=== PATIENT | female | born 1995 | race Caucasian/White ===

== ENCOUNTER 2020-12-23 16:35 | Inpatient (IN) ==
[2020-12-23] MEDS ORDERED: 0.9 % Sodium Chloride 1,000 ML IVC ONE ×2 (17:17→17:18)
[2020-12-23 17:40] LABS: Hematocrit 19.1 % (35.3-44.9); Hemoglobin 6.6 g/dL (11.5-15.4); Immature Platelets 2.2 % (1.1-6.1); Lymphocytes # 1.8 K/mcL (0.6-4.6); Lymphocytes % 92.3 %; Mean Corpuscular HGB Conc 34.6 g/dL (31.6-35.5); Mean Corpuscular Hemoglobin 32.7 pg (28.0-33.3); Mean Corpuscular Volume 94.6 fL (83.0-100.0); Monocytes # 0.1 K/mcL (0.0-1.3); Monocytes % 4.6 %; Neutrophils # 0.1 K/mcL (1.6-8.9); Red Blood Count 2.02 M/mcL (3.82-4.97); Segmented Neutrophils % 3.1 %; White Blood Count 1.9 K/mcL (4.3-11.1)
[2020-12-23 17:44] LABS: Platelet Count < 2 K/mcL (140-400)
[2020-12-23 18:00] LABS: Platelet Estimate Marked Decrease (Normal)
[2020-12-23 18:03] LABS: Alanine Aminotransferase 10 Units/L (7-52); Albumin 3.9 g/dL (3.5-5.7); Albumin/Globulin Ratio 1.1 (1.1-2.2); Alkaline Phosphatase 43 Units/L (34-104); Aspartate Amino Transferase 9 Units/L (13-39); BUN/Creatinine Ratio 21 (6-26); Bilirubin,Total 0.8 mg/dL (0.3-1.0); Blood Urea Nitrogen 11 mg/dL (6-20); Carbon Dioxide 22 mEq/L (23-29); Chloride 100 mEq/L (98-107); Globulin 3.7 g/dL (2.4-3.5); Glucose 112 mg/dL (70-105); Osmolality,Calculated 272 (280-300); Potassium 3.7 mEq/L (3.5-5.1); Sodium 131 mEq/L (136-145); Total Protein 7.6 g/dL (6.4-8.9); eGFR For African Americans > 60 (> 60); eGFR For Non-African Americans > 60 (> 60)
[2020-12-23] MEDS ORDERED: Cefepime HCl 2,000 MG in 0.9 % Sodium Chloride Mini Bag 100 ML IVPB ONE (19:00)
[2020-12-23 19:45] LABS: Bilirubin,Urine Negative (Negative); Blood,Urine Moderate (Negative); Clarity,Urine Clear (Clear); Color,Urine Colorless (Yellow); Glucose,Urine (UA) Normal (Normal); Ketones,Urine 20 mg/dL (Negative); Leukocyte Esterase,Urine Negative (Negative); Nitrite,Urine Negative (Negative); PH,Urine 6.5 pH Units (5.0-8.0); Protein,Urine Trace mg/dL (Neg-Trace); Specific Gravity,Urine 1.007 (1.010-1.025); Squamous Epithelial Cell,Urine Few per hpf (None-Few); Urobilinogen,Urine Normal (Normal); WBC,Urine 0-3 per hpf (0-3)
[2020-12-23] MEDS ORDERED: Ondansetron 4 MG/2 ML VIAL IVP PRN (20:24)
[2020-12-23] MEDS ORDERED: *HR* Promethazine 25 MG/ML VIAL IM PRN (20:24)
[2020-12-23] MEDS ORDERED: *HR* HYDROcodone/Acet 5/325 mg TABLET PO PRN (20:24)
[2020-12-23] MEDS ORDERED: Naloxone 0.4 MG/ML INJ IVP PRN (20:24)
[2020-12-23] MEDS ORDERED: Melatonin 3 MG TABLET PO PRN (20:27)
[2020-12-23] MEDS ORDERED: 0.9 % Sodium Chloride 250 ML IVC SCH ×2 (20:30→20:45)
[2020-12-23 20:40] LABS: Adenovirus Not Detected (Not Detect); Bordetella Pertussis Not Detected (Not Detect); Chlamydophila pneumoniae Not Detected (Not Detect); Coronavirus 229E Not Detected (Not Detect); Coronavirus HKU1 Not Detected (Not Detect); Coronavirus NL63 Not Detected (Not Detect); Coronavirus OC43 Not Detected (Not Detect); Human Metapneumovirus Not Detected (Not Detect); Human Rhinovirus/Enterovirus Not Detected (Not Detect); Influenza A Subtype 2009 H1 Not Detected (Not Detect); Influenza B Not Detected (Not Detect); Mycoplasma pneumoniae Not Detected (Not Detect); Parainfluenza Virus 1 Not Detected (Not Detect); Parainfluenza Virus 2 Not Detected (Not Detect); Parainfluenza Virus 3 Not Detected (Not Detect); Parainfluenza Virus 4 Not Detected (Not Detect); Respiratory Syncytial Virus Not Detected (Not Detect); SARS-CoV-2 Not Detected (Not Detect)
[2020-12-24] MEDS ORDERED: Ringers Solution, Lactated 1,000 ML IVC ONE (02:06)
[2020-12-24] MEDS: Acetaminophen 325 MG TABLET PO PRN (03:30)
[2020-12-24] MEDS: Cefepime HCl 2,000 MG in Water for inj. (sterile) 20 ML IVP SCH ×3 (05:29→20:55)
[2020-12-24 06:12] LABS: BUN/Creatinine Ratio 17 (6-26); Blood Urea Nitrogen 8 mg/dL (6-20); Calcium 8.2 mg/dL (8.6-10.3); Carbon Dioxide 21 mEq/L (23-29); Chloride 107 mEq/L (98-107); Glucose 107 mg/dL (70-105); Osmolality,Calculated 281 (280-300); Potassium 3.6 mEq/L (3.5-5.1); Sodium 136 mEq/L (136-145); eGFR For African Americans > 60 (> 60); eGFR For Non-African Americans > 60 (> 60)
[2020-12-24 06:51] LABS: Red Cell Distribution Width 17.8 % (11.5-14.5)
[2020-12-24 06:53] LABS: Hematocrit 19.8 % (35.3-44.9); Hemoglobin 6.7 g/dL (11.5-15.4); Immature Platelets 0.3 % (1.1-6.1); Lymphocytes # 1.4 K/mcL (0.6-4.6); Mean Corpuscular HGB Conc 33.8 g/dL (31.6-35.5); Mean Corpuscular Volume 88.8 fL (83.0-100.0); Mean Platelet Volume 9.5 fL (9.4-12.4); Red Blood Count 2.23 M/mcL (3.82-4.97); White Blood Count 1.5 K/mcL (4.3-11.1)
[2020-12-24 07:45] LABS: Platelet Count 20 K/mcL (140-400)
[2020-12-24 07:47] LABS: Neutrophils # 0.1 K/mcL (1.6-8.9)
[2020-12-24 07:48] LABS: Platelet Estimate Marked Decrease (Normal)
[2020-12-24] MEDS: Fluconazole 100 MG TABLET PO SCH (09:21)
[2020-12-24] MEDS ORDERED: 0.9 % Sodium Chloride 250 ML IVC SCH (13:45)
[2020-12-24] MEDS ORDERED: 0.9 % Sodium Chloride 250 ML ONE (15:50)
[2020-12-24 19:45] LABS: Adenovirus F 40/41 PCR Not detected (Not detect); Astrovirus PCR Not detected (Not detect); C.difficile Toxin A/B Gene PCR Not detected (Not detect); Campylobacter by PCR Not detected (Not detect); Cryptosporidium by PCR Not detected (Not detect); Cyclospora cayetanensis PCR Not detected (Not detect); E. coli O157 by PCR Not detected (Not detect); Entamoeba histolytica PCR Not detected (Not detect); Enteroaggregative E.coli(EAEC) Not detected (Not detect); Enteropathogenic E.coli(EPEC) Not detected (Not detect); Enterotoxigenic E.coli (ETEC) Not detected (Not detect); Giardia lamblia PCR Not detected (Not detect); Norovirus GI/GII PCR Not detected (Not detect); Plesiomonas shigelloides PCR Not detected (Not detect); Rotavirus A PCR Not detected (Not detect); Salmonella PCR Not detected (Not detect); Sapovirus PCR Not detected (Not detect); Shig/EnteroinvasiveE coli EIEC Not detected (Not detect); Shigalike tox-prod E coli STEC Not detected (Not detect); Vibrio PCR Not detected (Not detect); Vibrio cholerae PCR Not detected (Not detect); Yersinia enterocolitica PCR Not detected (Not detect)
[2020-12-25] MEDS: Acetaminophen 325 MG TABLET PO PRN (00:04)
[2020-12-25 03:30] LABS: Hematocrit 23.2 % (35.3-44.9); Mean Corpuscular Volume 87.9 fL (83.0-100.0); Monocytes % 3.4 %; Red Blood Count 2.64 M/mcL (3.82-4.97); Red Cell Distribution Width 17.2 % (11.5-14.5); Segmented Neutrophils % 2.7 %
[2020-12-25 03:32] LABS: Immature Platelets 0.8 % (1.1-6.1); Lymphocytes # 1.4 K/mcL (0.6-4.6); Lymphocytes % 93.9 %; Mean Corpuscular HGB Conc 34.5 g/dL (31.6-35.5); Mean Corpuscular Hemoglobin 30.3 pg (28.0-33.3); Monocytes # 0.1 K/mcL (0.0-1.3); White Blood Count 1.5 K/mcL (4.3-11.1)
[2020-12-25 03:44] LABS: BUN/Creatinine Ratio 16 (6-26); Blood Urea Nitrogen 7 mg/dL (6-20); Calcium 8.8 mg/dL (8.6-10.3); Carbon Dioxide 21 mEq/L (23-29); Chloride 106 mEq/L (98-107); Glucose 101 mg/dL (70-105); Osmolality,Calculated 282 (280-300); Platelet Count 6 K/mcL (140-400); Potassium 3.4 mEq/L (3.5-5.1); Sodium 137 mEq/L (136-145); eGFR For African Americans > 60 (> 60); eGFR For Non-African Americans > 60 (> 60)
[2020-12-25] MEDS: Cefepime HCl 2,000 MG in Water for inj. (sterile) 20 ML IVP SCH ×2 (04:09→12:11)
[2020-12-25 04:20] LABS: Platelet Estimate Marked Decrease (Normal)
[2020-12-25] MEDS: Fluconazole 100 MG TABLET PO SCH (09:02)
[2020-12-25 16:06] VITALS: BP 120/75
[2020-12-25 16:26] LABS: Hemoglobin 8.5 g/dL (11.5-15.4); Red Cell Distribution Width 16.8 % (11.5-14.5)
[2020-12-25 16:27] LABS: Eosinophils % 0.7 %; Hematocrit 24.8 % (35.3-44.9); Lymphocytes % 95.8 %; Mean Corpuscular HGB Conc 34.3 g/dL (31.6-35.5); Mean Corpuscular Volume 87.6 fL (83.0-100.0); Mean Platelet Volume 10.2 fL (9.4-12.4); Monocytes % 2.8 %; Red Blood Count 2.83 M/mcL (3.82-4.97); Segmented Neutrophils % 0.7 %; White Blood Count 1.4 K/mcL (4.3-11.1)
[2020-12-25 16:28] LABS: Lymphocytes # 1.3 K/mcL (0.6-4.6); Platelet Count 43 K/mcL (140-400)
[2020-12-25 16:55] LABS: Platelet Estimate Decreased (Normal)
== END 2020-12-25 18:45 | disposition home or self-care (01) | DRG 720 ==
LOC: 3ANU 16:35 → EMEROOARM 16:35 → SUATTDRO 20:49 → 3ANU 21:18
PROVIDERS: ADMIT Internal Medicine; ATTEND Internal Medicine